=== PATIENT | male | born 1960 | race Asian ===

== ENCOUNTER 2017-03-08 13:31 | Inpatient (IN) | payer OTHER ==
--- NOTE | 2017-03-08 13:52 | ED Physician Chart ---
Chief Complaint/HPI - Patient Information Date Seen:: 03/08/17 Time Seen:: 13:30 Chief Complaint:: Increased lethargy. History of Present Illness:: Brought in by ambulance because pt became lethargic after he has been exposed to insecticide when he used it to spray his own apartment according to pt. Pt remains alert and responsive. Pt denies any chest pain or palpitation. No other bodily pain or discomfort otherwise. Pt had transient N/V with vomitus consists of gastric content. No hematemesis. Allergies:: NKA Vitals:: see Nurse Note. Historian:: Patient Family MD/PCP:: Dr. Cifuentes LMP:: N/A Review:: Nurse's Note Reviewed Review of Systems - Review of Systems General/Constitutional: No fever, No chills, No weight loss, No weakness, Diaphoresis, No edema, No loss of appetite Skin: No skin lesions, No rash, No bruising Head: No headache, No light-headedness Eyes: No loss of vision, No pain, No diplopia ENT: No earache, No nasal drainage, No sore throat, No tinnitus Neck: No neck pain, No swelling, No thyromegaly, No stiffness, No mass noted Cardio Vascular: No chest pain, No palpitations, No PND, No orthopnea, No edema Pulmonary: No SOB, No cough, No wheezing GI: Nausea, Vomiting (transient), No diarrhea, No pain G/U: No dysuria, No frequency, No hematuria Musculoskeletal: Bone or joint pain Endocrine: No polyuria, No polydipsia Psychiatric: No prior psych history Hematopoietic: No bruising, No lymphadenopathy Allergic/Immuno: No urticaria, No angioedema Neurological: No syncope, No focal symptoms, No weakness, No paresthesia, No headache, No seizure, No vertigo, Other (lethargy.) Past Medical History - Past Medical History Past Medical History: DM Family History: Diabetes Melitus (father) Social History: Non Smoker, No Alcohol, No Drug Use, , Other (lives with his .) Employment:: external auditor Surgical History: None Psychiatricy History: None Medication: Reviewed Family Medical History - Family Member mother History Unknown: Yes Physical Exam - Physical Examination General/Constitutional: Awake, Well-developed, well-nourished, Alert, No distress Other Gen/Cons comments:: Pt appears to be lethargic. Pt breathes with good respiratory effort. He speaks clearly and interacts normally. Head: Atraumatic Eyes: Lids, conjuctiva normal, PERRL, EOMI Skin: Nl inspection, No rash, No skin lesions, No ecchymosis, Well hydrated, No lymphadenopathy ENMT: External ears, nose nl, Nasal exam nl, Lips, teeth, gums nl, Oropharynx nl Neck: Nontender, Full ROM w/o pain, No JVD, No nuchal rigidity, No mass, No stridor Respiratory: Nl effort/Exclusion, Clear to Auscultation, No Wheeze/Rhonchi/Rales Cardio Vascular: RRR, No murmur, gallop, rubs GI: No tenderness/rebounding/guarding, No organomegaly, Normal BS's, Nondistended Other GI comments:: Abdomen is soft. : No CVA tenderness Extremities: No tenderness or effusion, Full ROM, normal strength in all extremities, No edema Neuro/Psych: Alert/oriented (oriented x 3), Judgement/insight normal, Mood normal, No focal deficits Labs/Radiology/EKG Results - Lab Results Results: Laboratory Tests 03/08/17 03/08/17 03/08/17 13:52 13:52 13:52 WBC 13.5 H RBC 5.89 H Hgb 17.0 Hct 49.8 H MCV 84.6 MCH 28.9 MCHC Differential 34.2 RDW 12.5 Plt Count 148 L MPV 10.0 Neutrophils % 55.4 Lymphocytes % 34.8 Monocytes % 8.4 Eosinophils % 1.0 Basophils % 0.4 PT 10.2 INR 0.98 PTT (Actin FS) < 17.0 L Sodium 135 L Potassium 3.5 Chloride 104 Carbon Dioxide 18.8 L Anion Gap 15.7 BUN 17 Creatinine 1.1 Est GFR ( Amer) > 60.0 Est GFR (Non-Af Amer) > 60.0 BUN/Creatinine Ratio 15.5 Glucose 193 H Whole Bld Lactic Acid Calcium 10.0 Total Bilirubin 0.7 AST 22 ALT 35 Alkaline Phosphatase 71 Creatine Kinase 158 Troponin I Total Protein 7.8 Albumin 4.9 Globulin 2.9 Albumin/Globulin Ratio 1.7 03/08/17 03/08/17 13:52 13:52 WBC RBC Hgb Hct MCV MCH MCHC Differential RDW Plt Count MPV Neutrophils % Lymphocytes % Monocytes % Eosinophils % Basophils % PT INR PTT (Actin FS) Sodium Potassium Chloride Carbon Dioxide Anion Gap BUN Creatinine Est GFR ( Amer) Est GFR (Non-Af Amer) BUN/Creatinine Ratio Glucose Whole Bld Lactic Acid 4.87 H* Calcium Total Bilirubin AST ALT Alkaline Phosphatase Creatine Kinase Troponin I < 0.01 L Total Protein Albumin Globulin Albumin/Globulin Ratio Laboratory Last Values WBC 12.8 Th/cmm (4.8-10.8) H 03/08/17 21:01 RBC 5.38 Mil/cmm (4.30-5.70) 03/08/17 21:01 Hgb 15.7 gm/dL (13.2-17.3) 03/08/17 21: Hct 46.1 % (39.0-49.0) 03/08/17 21:01 MCV 85.8 fl (80-99) 03/08/17 21:01 MCH 29.2 pg (26.0-30.0) 03/08/17 21: MCHC Differential 34.0 pg (28.0-36.0) 03/08/17 21:01 RDW 12.2 % (11.5-20.0) 03/08/17 21:01 Plt Count 115 Th/cmm (150-400) L D 03/08/17 21:01 MPV 9.3 fl 03/08/17 21:01 Neutrophils % 83.5 % (40.0-80.0) H 03/08/17 21:01 Lymphocytes % 12.9 % (20.0-50.0) L 03/08/17 21: Monocytes % 2.7 % (2.0-10.0) 03/08/17 21: Eosinophils % 0.1 % (0.0-5.0) 03/08/17 21: Basophils % 0.8 % (0.0-2.0) 03/08/17 21: PT 10.2 SECONDS (9.5-11.5) 03/08/17 13:52 INR 0.98 (0.5-1.4) 03/08/17 13:52 PTT (Actin FS) < 17.0 SECONDS (26.0-38.0) L 03/08/17 13:52 Sodium 135 mEq/L (136-145) L 03/08/17 13:52 Potassium 3.5 mEq/L (3.5-5.1) 03/08/17 13:52 Chloride 104 mEq/L (98-107) 03/08/17 13:52 Carbon Dioxide 18.8 mEq/L (21.0-31.0) L 03/08/17 13:52 Anion Gap 15.7 (7.0-16.0) 03/08/17 13:52 BUN 17 mg/dL (7-25) 03/08/17 13:52 Creatinine 1.1 mg/dL (0.7-1.3) 03/08/17 13:52 Est GFR ( Amer) > 60.0 ml/min (>90) 03/08/17 13:52 Est GFR (Non-Af Amer) > 60.0 ml/min 03/08/17 13:52 BUN/Creatinine Ratio 15.5 03/08/17 13:52 Glucose 193 mg/dL (70-105) H 03/08/17 13:52 Hemoglobin A1c % 6.7 % (4.0-6.0) H 03/08/17 13:52 Whole Bld Lactic Acid 3.12 mmol/L (0.60-1.99) H* 03/08/17 21:01 Calcium 10.0 mg/dL (8.6-10.3) 03/08/17 13:52 Total Bilirubin 0.7 mg/dL (0.3-1.0) 03/08/17 13:52 AST 22 U/L (13-39) 03/08/17 13:52 ALT 35 U/L (7-52) 03/08/17 13:52 Alkaline Phosphatase 71 U/L (34-104) 03/08/17 13:52 Creatine Kinase 158 U/L (30-223) 03/08/17 13:52 Troponin I < 0.01 ng/mL (0.01-0.05) L 03/08/17 13:52 Total Protein 7.8 gm/dL (6.0-8.3) 03/08/17 13:52 Albumin 4.9 gm/dL (4.2-5.5) 03/08/17 13:52 Globulin 2.9 gm/dL 03/08/17 13:52 Albumin/Globulin Ratio 1.7 (1.0-1.8) 03/08/17 13:52 - Radiology Results Results: PCXR: NAD. Official report is pending. - EKG Interpretations EKG Time:: 13:50 Rate & Rhythm: NSR with VR 87 Comments:: No acute ischemic changes. Cardiac monitoring: NSR with VR 86. No ectopy. ED Septic Shock - . Is Septic Shock (SBP<90, OR Lactate>4 mmol\L) present?: No Reassessment (Disposition) - Reassessment Reassessment:: 1415 Pt has been repeatedly evaluated. Pt remains stable. Poison Control has been contacted per my nurse Peyman Miles Cifuentes earlier. Pt needs to be observed for about 6 hours. No specific treatment. Supportive care only. Meanwhile, staff members have been reminded to be cautious about potential exposure to toxic substance. supervisor tank cleaning on duty was notified. Facemasks that were available that maximize protection against inhaling toxic particles were worn. His clothes that may have contaminated with potentially toxic substance(s) were removed and stored in a plastic bag. Pt was moved to an isolated area. Windows were open and a fan was placed in operational mode to ventilate out potentially toxic fume. 1920 Pt has been again evaluated repeatedly. Pt continues to improve. No dyspnea or lightheadedness. No bodily pain or discomfort. Will continue to hydrate pt. 2210 Pt continues to improve. Repeat WBC and lactic acid level just became available. Lactic acid level is still elevated. Pt states that he has been on metformin 1000 mg po q12h over past year. His last dose of metformin was taken at about 0900 today. Case was discussed with Dr. Hartley on the phone at about 1025. Pt is to be admitted to [facility] under his care. Reassessment Condition:: Improved - Diagnosis Diagnosis:: Recent h/o exposure to insecticide. Lactic acidosis Diabetes mellitus. - Patient Disposition Admitted to:: Telemetry Admitting Medical Physician:: Robert Hartley Time:: 22:35 Condition at Disposition:: Stable, Improved ED Discharge Plan - Patient Disposition Admit/Discharge/Transfer: Acute Care w/in this hosp Condition at Disposition: Stable
[2017-03-08] MEDS ORDERED: Sodium Chloride 0.9% 1,000 ML IV ONE ×2 (13:55→18:25)
[2017-03-08 13:57] LABS: % BASOPHILS 0.4 % (0.0-2.0); % LYMPHOCYTES 34.8 % (20.0-50.0); % MONOCYTES 8.4 % (2.0-10.0); % NEUTROPHILS 55.4 % (40.0-80.0); HEMATOCRIT 49.8 % (39.0-49.0); MEAN CELL VOLUME 84.6 fl (80-99); MEAN CORPUSCULAR HEMOGLOBIN 28.9 pg (26.0-30.0); MEAN CORPUSCULAR HGB CONC 34.2 pg (28.0-36.0); NEUTROPHILE ABSOLUTE 7.5 Th/cmm (1.8-8.0); PLATELET COUNT 148 Th/cmm (150-400); RED BLOOD COUNT 5.89 Mil/cmm (4.30-5.70); RED CELL DISTRIBUTION WIDTH 12.5 % (11.5-20.0)
[2017-03-08 13:59] LABS: WHITE BLOOD COUNT 13.5 Th/cmm (4.8-10.8)
[2017-03-08 14:17] LABS: INR 0.98 (0.5-1.4); PROTHROMBIN TIME (TEST) 10.2 SECONDS (9.5-11.5)
[2017-03-08 14:24] LABS: ALB/GLOB RATIO 1.7 (1.0-1.8); ALKALINE PHOSPHATASE 71 U/L (34-104); ANION GAP 15.7 (7.0-16.0); BILIRUBIN,TOTAL 0.7 mg/dL (0.3-1.0); BUN - UREA NITROGEN 17 mg/dL (7-25); BUN/CREATININE RATIO 15.5; CARBON DIOXIDE 18.8 mEq/L (21.0-31.0); CHLORIDE 104 mEq/L (98-107); CREATININE - SERUM 1.1 mg/dL (0.7-1.3); GLUCOSE 193 mg/dL (70-105); POTASSIUM SERUM 3.5 mEq/L (3.5-5.1); SGOT 22 U/L (13-39); SGPT/ALT 35 U/L (7-52); SODIUM SERUM 135 mEq/L (136-145)
[2017-03-08 21:10] LABS: % BASOPHILS 0.8 % (0.0-2.0); % EOSINOPHILS 0.1 % (0.0-5.0); % LYMPHOCYTES 12.9 % (20.0-50.0); % MONOCYTES 2.7 % (2.0-10.0); % NEUTROPHILS 83.5 % (40.0-80.0); HEMATOCRIT 46.1 % (39.0-49.0); HEMOGLOBIN 15.7 gm/dL (13.2-17.3); MEAN CELL VOLUME 85.8 fl (80-99); MEAN CORPUSCULAR HEMOGLOBIN 29.2 pg (26.0-30.0); MEAN PLATELET VOLUME 9.3 fl; NEUTROPHILE ABSOLUTE 10.7 Th/cmm (1.8-8.0); RED BLOOD COUNT 5.38 Mil/cmm (4.30-5.70); RED CELL DISTRIBUTION WIDTH 12.2 % (11.5-20.0)
[2017-03-08 21:25] LABS: PLATELET COUNT 115 Th/cmm (150-400)
[2017-03-08 21:27] LABS: WHITE BLOOD COUNT 12.8 Th/cmm (4.8-10.8)
[2017-03-08] MEDS ORDERED: Sodium Chloride 0.9% 1,000 ML IV SCH (22:49)
[2017-03-09 01:39] LABS: ALB/GLOB RATIO 1.6 (1.0-1.8); ALKALINE PHOSPHATASE 56 U/L (34-104); ANION GAP 13.6 (7.0-16.0); BILIRUBIN,TOTAL 0.7 mg/dL (0.3-1.0); BUN - UREA NITROGEN 16 mg/dL (7-25); BUN/CREATININE RATIO 13.3; CALCIUM SERUM 8.9 mg/dL (8.6-10.3); CARBON DIOXIDE 21.1 mEq/L (21.0-31.0); CHLORIDE 104 mEq/L (98-107); CREATININE - SERUM 1.2 mg/dL (0.7-1.3); GLUCOSE 184 mg/dL (70-105); POTASSIUM SERUM 3.7 mEq/L (3.5-5.1); SGOT 15 U/L (13-39); SGPT/ALT 26 U/L (7-52); SODIUM SERUM 135 mEq/L (136-145)
[2017-03-09 05:01] VITALS: BP 133/79
[2017-03-09] MEDS: INSULIN ASPART, RECOMBINANT 100 UNITS/ML SUBQ SCH ×2 (06:37→12:28)
--- NOTE | 2017-03-09 08:19 | Diagnostic Imaging Report ---
CHEST X-RAY: AP view INDICATION: pain COMPARISON: None FINDINGS: Left basal subsegmental atelectasis versus scarring is noted. There is no focal consolidation or pleural effusions The heart is normal in size. Atherosclerotic vascular disease is noted. Degenerative changes of the spine are noted. IMPRESSION: Left basal subsegmental atelectasis versus scarring. No focal consolidation identified.
--- NOTE | 2017-03-09 08:52 | History and Physical ---
History of Present Illness - HPI Chief Complaint: Poison intoxication HPI: Patient refer that he use insectizide to clean his apartment and in some way his clothes became contaminated. He started to fell drowsy and he call 911 and was transported to ER. Vital Signs: Last Vital Signs Temp 98.7 F 03/09/17 03:52 Pulse 106 03/09/17 03:52 Resp 18 03/09/17 03:52 BP 133/79 03/09/17 05:01 Pulse Ox 98 03/09/17 03:52 Past Medical History Cardiovascular: Report: No Pertinent Hx Pulmonary: Report: No Pertinent Hx BIOPROCESS ENGINEER: Report: No Pertinent Hx GI: Report: No Pertinent Hx Psych: Report: No Pertinent Hx Musculoskeletal: Report: No Pertinent Hx Rheumatologic: Report: No pertinent Hx Infectious Disease: Report: No Pertinent Hx Renal/: Report: No Pertinent Hx Endocrine: Report: Diabetes Dermatology: Report: No Pertinent Hx - Past Surgical History Past Surgical History: No pertinent Hx Family Medical History - Family Member mother History Unknown: Yes Hx Family Diabetes: Yes Social History Smoke: Quit Alcohol: None Drugs: None Lives: Alone Domestic Violence: Negative - Medications Home Medications: Home Medication Medication Instructions Recorded Type Metformin HCl [Glucophage] 1,000 mg PO BID 03/08/17 History - Allergies Allergies/Adverse Reactions: Allergies Allergy/AdvReac Type Severity Reaction Status Date / Time No Known Allergies Allergy Verified 03/08/17 14:11 Review of Systems - Review of Systems Constitutional: Report: Weakness Eyes: Report: No Significant ENT: Report: No Significant Respiratory: Report: No Significant Cardiovascular: Report: No Significant Gastrointestinal: Report: Nausea Genitourinary: Report: No Significant Musculoskeletal: Report: No Significant Skin: Report: No Significant Neurological: Report: Weakness Physical Exam - Physical Exam HEENT: Report: Ears Nose Throat within normal limits Neck: Report: Within normal limits Cardiovascular Systems: Report: Regular, Rate and Rhythm Respiratory: Report: Breath Sounds are within normal limits Abdomen: Report: Non-tender to palpation Back: Report: Inspection of back is within normal limits. Extremities: Report: Non-tender to palpation. Skin: Report: Color of skin is within normal limits Neuro/Psych: Report: Mood affect is within normal limits - Lab Results All Lab Results last 24 hours: Laboratory Last Values WBC 12.8 Th/cmm (4.8-10.8) H 03/08/17 21:01 RBC 5.38 Mil/cmm (4.30-5.70) 03/08/17 21:01 Hgb 15.7 gm/dL (13.2-17.3) 03/08/17 21:01 Hct 46.1 % (39.0-49.0) 03/08/17 21:01 MCV 85.8 fl (80-99) 03/08/17 21:01 MCH 29.2 pg (26.0-30.0) 03/08/17 21: MCHC Differential 34.0 pg (28.0-36.0) 03/08/17 21:01 RDW 12.2 % (11.5-20.0) 03/08/17 21:01 Plt Count 115 Th/cmm (150-400) L D 03/08/17 21:01 MPV 9.3 fl 03/08/17 21:01 Neutrophils % 83.5 % (40.0-80.0) H 03/08/17 21:01 Lymphocytes % 12.9 % (20.0-50.0) L 03/08/17 21:01 Monocytes % 2.7 % (2.0-10.0) 03/08/17 21:01 Eosinophils % 0.1 % (0.0-5.0) 03/08/17 21: Basophils % 0.8 % (0.0-2.0) 03/08/17 21:01 PT 10.2 SECONDS (9.5-11.5) 03/08/17 13:52 INR 0.98 (0.5-1.4) 03/08/17 13:52 PTT (Actin FS) < 17.0 SECONDS (26.0-38.0) L 03/08/17 13:52 Sodium 135 mEq/L (136-145) L 03/09/17 01:07 Potassium 3.7 mEq/L (3.5-5.1) 03/09/17 01:07 Chloride 104 mEq/L (98-107) 03/09/17 01:07 Carbon Dioxide 21.1 mEq/L (21.0-31.0) 03/09/17 01:07 Anion Gap 13.6 (7.0-16.0) 03/09/17 01:07 BUN 16 mg/dL (7-25) 03/09/17 01:07 Creatinine 1.2 mg/dL (0.7-1.3) 03/09/17 01:07 Est GFR ( Amer) > 60.0 ml/min (>90) 03/09/17 01:07 Est GFR (Non-Af Amer) > 60.0 ml/min 03/09/17 01:07 BUN/Creatinine Ratio 13.3 03/09/17 01:07 Glucose 184 mg/dL (70-105) H 03/09/17 01:07 POC Glucose 116 MG/DL (70 - 105) H 03/09/17 06:37 Hemoglobin A1c % 6.7 % (4.0-6.0) H 03/08/17 13:52 Whole Bld Lactic Acid 1.67 mmol/L (0.60-1.99) 03/09/17 06:33 Calcium 8.9 mg/dL (8.6-10.3) 03/09/17 01:07 Total Bilirubin 0.7 mg/dL (0.3-1.0) 03/09/17 01:07 AST 15 U/L (13-39) 03/09/17 01:07 ALT 26 U/L (7-52) 03/09/17 01:07 Alkaline Phosphatase 56 U/L (34-104) 03/09/17 01:07 Creatine Kinase 158 U/L (30-223) 03/08/17 13:52 Troponin I < 0.01 ng/mL (0.01-0.05) L 03/08/17 13:52 Total Protein 6.4 gm/dL (6.0-8.3) 03/09/17 01:07 Albumin 3.9 gm/dL (4.2-5.5) L 03/09/17 01:07 Globulin 2.5 gm/dL 03/09/17 01:07 Albumin/Globulin Ratio 1.6 (1.0-1.8) 03/09/17 01:07 Laboratory Results - last 24 hr 03/09/17 03/09/17 03/09/17 01:07 01:07 06:33 Sodium 135 L Potassium 3.7 Chloride 104 Carbon Dioxide 21.1 Anion Gap 13.6 BUN 16 Creatinine 1.2 Est GFR ( Amer) > 60.0 Est GFR (Non-Af Amer) > 60.0 BUN/Creatinine Ratio 13.3 Glucose 184 H POC Glucose Whole Bld Lactic Acid 3.17 H* 1.67 Calcium 8.9 Total Bilirubin 0.7 AST 15 ALT 26 Alkaline Phosphatase 56 Total Protein 6.4 Albumin 3.9 L Globulin 2.5 Albumin/Globulin Ratio 1.6 03/09/17 06:37 Sodium Potassium Chloride Carbon Dioxide Anion Gap BUN Creatinine Est GFR ( Amer) Est GFR (Non-Af Amer) BUN/Creatinine Ratio Glucose POC Glucose 116 H Whole Bld Lactic Acid Calcium Total Bilirubin AST ALT Alkaline Phosphatase Total Protein Albumin Globulin Albumin/Globulin Ratio - Assessment Assessment: Patient is awake, alert, calm, in no acute distress. Dx: Poison intoxication - Plan Plan: Patient in IV NS, Insulin scale. Last Lactic acid was normal. Will continue to monitor
[2017-03-09 08:55] LABS: % BASOPHILS 0.5 % (0.0-2.0); % LYMPHOCYTES 22.8 % (20.0-50.0); % MONOCYTES 4.4 % (2.0-10.0); % NEUTROPHILS 71.3 % (40.0-80.0); HEMATOCRIT 44.5 % (39.0-49.0); HEMOGLOBIN 14.8 gm/dL (13.2-17.3); MEAN CELL VOLUME 86.2 fl (80-99); MEAN CORPUSCULAR HEMOGLOBIN 28.7 pg (26.0-30.0); MEAN CORPUSCULAR HGB CONC 33.3 pg (28.0-36.0); NEUTROPHILE ABSOLUTE 6.9 Th/cmm (1.8-8.0); PLATELET COUNT 124 Th/cmm (150-400); RED BLOOD COUNT 5.17 Mil/cmm (4.30-5.70); RED CELL DISTRIBUTION WIDTH 12.5 % (11.5-20.0)
[2017-03-09 09:17] LABS: ALB/GLOB RATIO 1.6 (1.0-1.8); ALKALINE PHOSPHATASE 53 U/L (34-104); ANION GAP 11.8 (7.0-16.0); BILIRUBIN,TOTAL 0.8 mg/dL (0.3-1.0); BUN - UREA NITROGEN 16 mg/dL (7-25); BUN/CREATININE RATIO 14.5; CALCIUM SERUM 8.6 mg/dL (8.6-10.3); CARBON DIOXIDE 21.8 mEq/L (21.0-31.0); CHLORIDE 106 mEq/L (98-107); CREATININE - SERUM 1.1 mg/dL (0.7-1.3); GLUCOSE 184 mg/dL (70-105); POTASSIUM SERUM 3.6 mEq/L (3.5-5.1); SGOT 14 U/L (13-39); SGPT/ALT 25 U/L (7-52); SODIUM SERUM 136 mEq/L (136-145)
[2017-03-09 09:19] LABS: WHITE BLOOD COUNT 9.6 Th/cmm (4.8-10.8)
--- NOTE | 2017-03-09 13:19 | Diagnostic Imaging Report ---
Exam: Portable chest x-ray HISTORY: Pneumonia. Findings: Portable upright examination of chest at 1100 hours reviewed no prior studies available comparison. Bony thorax is intact. Mediastinal structures midline the heart is not enlarged the costophrenic angles are clear. Bony thorax intact. IMPRESSION: No acute disease noted
--- NOTE | 2017-04-06 11:17 | Discharge Summary ---
General Discharge Summary - Discharge Summary Date of Admission: 03/08/17 Admitting Diagnosis: Poison intoxication, Lactic Acidosis Discharge Date: 03/09/17 Discharge Diagnosis: Poison Intoxication, Lactic Acidosis, DM Laboratory Findings: Laboratory Tests 03/09/17 03/09/17 03/09/17 01:07 01:07 06:33 WBC RBC Hgb Hct MCV MCH MCHC Differential RDW Plt Count MPV Neutrophils % Lymphocytes % Monocytes % Eosinophils % Basophils % Sodium 135 L Potassium 3.7 Chloride 104 Carbon Dioxide 21.1 Anion Gap 13.6 BUN 16 Creatinine 1.2 Est GFR ( Amer) > 60.0 Est GFR (Non-Af Amer) > 60.0 BUN/Creatinine Ratio 13.3 Glucose 184 H POC Glucose Whole Bld Lactic Acid 3.17 H* 1.67 Calcium 8.9 Total Bilirubin 0.7 AST 15 ALT 26 Alkaline Phosphatase 56 Total Protein 6.4 Albumin 3.9 L Globulin 2.5 Albumin/Globulin Ratio 1.6 03/09/17 03/09/17 03/09/17 06:37 08:50 08:50 WBC 9.6 D RBC 5.17 Hgb 14.8 Hct 44.5 MCV 86.2 MCH 28.7 MCHC Differential 33.3 RDW 12.5 Plt Count 124 L MPV 10.0 Neutrophils % 71.3 Lymphocytes % 22.8 Monocytes % 4.4 Eosinophils % 1.0 Basophils % 0.5 Sodium 136 Potassium 3.6 Chloride 106 Carbon Dioxide 21.8 Anion Gap 11.8 BUN 16 Creatinine 1.1 Est GFR ( Amer) > 60.0 Est GFR (Non-Af Amer) > 60.0 BUN/Creatinine Ratio 14.5 Glucose 184 H POC Glucose 116 H Whole Bld Lactic Acid Calcium 8.6 Total Bilirubin 0.8 AST 14 ALT 25 Alkaline Phosphatase 53 Total Protein 6.2 Albumin 3.8 L Globulin 2.4 Albumin/Globulin Ratio 1.6 03/09/17 11:32 WBC RBC Hgb Hct MCV MCH MCHC Differential RDW Plt Count MPV Neutrophils % Lymphocytes % Monocytes % Eosinophils % Basophils % Sodium Potassium Chloride Carbon Dioxide Anion Gap BUN Creatinine Est GFR ( Amer) Est GFR (Non-Af Amer) BUN/Creatinine Ratio Glucose POC Glucose 159 H Whole Bld Lactic Acid Calcium Total Bilirubin AST ALT Alkaline Phosphatase Total Protein Albumin Globulin Albumin/Globulin Ratio Hospital Course: Patient was hospitalized at [facility] [place]. He was started in IV NS, Insulion sliding scale and patient improved. Treatment: IV, NS, Insulin sliding scale, Diabetic diet Condition at Discharge: Stable Disposition: PT DISCHARGED HOME Home Medications: Home Medication Medication Instructions Recorded Type Metformin HCl [Glucophage] 1,000 mg PO BID 03/08/17 History Activity: As Tolerated Consults and Follow-Up: ROSANA CORTES [Other] not on staff,PCP is [Primary Care Provider] - Instructions: Fall Prevention and Home Safety, [id number], Lactic Acid, Lactate, Open Wound, Forehead, [id number], Cervical Sprain, [id number]
== END 2017-03-09 12:53 | disposition home or self-care (01) | DRG 918 ==
LOC: ER 13:31 → TELE 22:35
PROVIDERS: ADMIT General Practice; ATTEND General Practice
DX: T60.91XA Toxic effect of unspecified pesticide, accidental (unintentional), initial encounter (principal); E87.2 Acidosis; E11.9 Type 2 diabetes mellitus without complications; Y92.89 Other specified places as the place of occurrence of the external cause; Z82.49 Family history of ischemic heart disease and other diseases of the circulatory system; Z87.891 Personal history of nicotine dependence; Z79.84 Long term (current) use of oral hypoglycemic drugs
CPT/HCPCS: 36415-UA; 71010-TC; 80053-TC; 82550-TC; 82948-90; 83036-90; 83605; 84484-TC; 85025-TC; 85610-TC; 93005; 96374; J1815; J2405; J7030